=== PATIENT | female | born 1985 | race Two or more races ===

== ENCOUNTER 2019-03-13 02:56 | Outpatient (CLI) | payer OTHER ==
[2019-03-13] MEDS ORDERED: ONDANSETRON 4 MG/2 ML VIAL IVP PRN (03:20)
[2019-03-13] MEDS ORDERED: LACTATED RINGERS 1,000 ML IV ONE (03:25)
[2019-03-13] MEDS ORDERED: SODIUM CHLORIDE FLUSH 0.9% 10 ML SYRINGE ONE ×2 (03:26→07:38)
[2019-03-13] MEDS: LABETALOL 5 MG/1 ML 20 ML MDV IVP ONE ×2 (03:30→03:36)
[2019-03-13] MEDS ORDERED: ONDANSETRON 4 MG/2 ML VIAL ONE (03:32)
[2019-03-13 03:36] LABS: BASOPHILS % (AUTO) 0.2 %; EOSINOPHILS % (AUTO) 0.2 %; HGB - HEMOGLOBIN 13.3 g/dL (12.0-16.0); LYMPHOCYTES # (AUTO) 1.3 10^3/uL (1.5-3.5); LYMPHOCYTES % (AUTO) 9.5 %; MEAN CORPUSCULAR HEMOGLOBIN 33.9 pg (27.0-31.0); MEAN CORPUSCULAR HGB CONC 34.7 g/dL (32.0-36.0); MEAN CORPUSCULAR VOLUME 97.7 fL (81.0-99.0); MEAN PLATELET VOLUME 10.4 fL (7.9-10.8); MONOCYTES # (AUTO) 0.5 10^3/uL (0.0-1.0); NEUTROPHILS # (AUTO) 11.4 10^3/uL (1.5-6.6); NEUTROPHILS % (AUTO) 85.3 %; PLT - PLATELET COUNT 244 10^3/uL (130-450); RED BLOOD COUNT 3.92 10^6/uL (4.20-5.40); RED CELL DISTRIBUTION WIDTH 12.2 % (12.0-15.0); WHITE BLOOD COUNT 13.3 x10^3/uL (4.8-10.8)
[2019-03-13 03:38] LABS: BILIRUBIN,URINE NEGATIVE (NEGATIVE); GLUCOSE, URINE (UA) NEGATIVE (NEGATIVE); KETONES,URINE (UA) NEGATIVE (NEGATIVE); LEUKOCYTE ESTERASE, URINE NEGATIVE (NEGATIVE); NITRITE,URINE NEGATIVE (NEGATIVE); OCCULT BLOOD,URINE SMALL (NEGATIVE); PROTEIN,URINE 100 mg/dL (NEGATIVE); UROBILINOGEN,URINE 0.2 (NORMAL) E.U./dL (NORMAL)
[2019-03-13 03:39] LABS: CLARITY,URINE CLEAR (CLEAR)
[2019-03-13 03:48] LABS: CREATININE 0.7 mg/dL (0.4-1.0); URIC ACID 4.2 mg/dL (2.6-7.2)
[2019-03-13] MEDS ORDERED: LABETALOL 20 MG/4 ML SYRINGE IVP ONE ×4 (03:58→06:31)
[2019-03-13 04:02] LABS: PROTEIN/CREATININE RATIO,URINE 5.6 (<=0.2)
[2019-03-13] MEDS ORDERED: MAGNESIUM SULFATE IN WATER 20 GM/500 ML IV.SOLN IV SCH (04:10)
[2019-03-13] MEDS ORDERED: BETAMETHASONE 30 MG/5 ML VIAL IM ONE (04:11)
[2019-03-13] MEDS: MAGNESIUM SULFATE 2 GRAM 2 GM/50 ML BAG IV SCH ×2 (04:16→04:36)
[2019-03-13] MEDS ORDERED: MAGNESIUM SULFATE IN WATER 20 GM/500 ML IV.SOLN IV ONE (04:38)
[2019-03-13 05:22] LABS: MUDS CUTOFF CONCENTRATIONS CUTOFF CONC BELOW:
[2019-03-13 05:34] LABS: AMPHETAMINE SCREEN,URINE NEGATIVE (NEGATIVE); BENZODIAZEPINES SCREEN, URINE NEGATIVE (NEGATIVE); COCAINE SCREEN URINE NEGATIVE (NEGATIVE); METHADONE SCREEN, URINE NEGATIVE (NEGATIVE); METHAMPHETAMINES SCREEN, URINE NEGATIVE (NEGATIVE); OPIATE SCREEN, URINE NEGATIVE (NEGATIVE); OXYCODONE SCREEN, URINE NEGATIVE (NEGATIVE); PROPOXYPHENE SCREEN, URINE NEGATIVE (NEGATIVE); TRICYCLIC ANTIDEPRESSANT,URINE NEGATIVE (NEGATIVE)
[2019-03-13] MEDS ORDERED: LABETALOL 100 MG TABLET PO ONE (05:55)
--- NOTE | 2019-03-13 06:22 | PREOP HISTORY & PHYSICAL ---
DATE OF SERVICE: 03/13/2019 Physician: Mart Haddad MD IDENTIFICATION: A 33-year-old G1, P0, female whose EDC is 04/20, making her 34 weeks and 4 days. CHIEF COMPLAINT: Epigastric pain. HISTORY OF PRESENT ILLNESS: Patient states roughly 11:30 this evening, she was unable to fall asleep secondary to epigastric pain. She states that this has gotten progressively worse. She took Zantac for presumed heartburn. She states she had an episode of emesis at that time. She stated there was food that she threw up. She has not had any previous episodes in the past. She states at her last visit on 02/13/2019, she had an elevated blood pressure, 148/88, which resolved in the clinic. She denies any scotoma or headache. She has received her care at [facility] in [place], [place]. She denies any family history for preeclampsia. She has a sister who has had 3 children without preeclampsia; however, she relates that she was delivered at 32 weeks. PAST MEDICAL HISTORY: Patient denies any hypertensive, diabetic, cardiac or pulmonary disease. PAST SURGICAL HISTORY: Positive for a tonsillectomy and adenoidectomy, as well as wisdom teeth. ALLERGIES: NONE KNOWN. CURRENT MEDICATIONS 1. vitamins. 2. Zantac. 3. Tylenol. HABITS: Patient denies use of alcohol, tobacco, street or addictive drugs. SOCIAL HISTORY: Patient is single. She is active [employer], works as an electrician ship. FAMILY HISTORY: Positive for diabetes in both her parents type 2 as well as CVA in her father. REVIEW OF SYSTEMS: Negative with the exception of the need for glasses. PHYSICAL EXAMINATION VITAL SIGNS: Upon arrival, her blood pressures were 167/115, 176/113. She was ordered labetalol for this. Pulse is running 86. heart tones show a baseline of 130 with accelerations. HEENT: Pupils are equal, round. Extraocular muscles are intact. Thyroid is not palpably enlarged. HEART: Regular rate and rhythm without murmurs. LUNGS: Lung boyd are clear without rales or wheezes. BACK: No spinal or CVA tenderness. ABDOMEN: Shows tenderness in the epigastrium, particularly under the xiphoid. The liver itself does not palpate as tender. Fundal height was noted to be 33 cm. Her DTRs are 3+ and she shows evidence of a single beat of clonus. LABORATORIES: CBC shows a white count of 13.3, hemoglobin is 13.3, hematocrit is 38.3, platelets are 244. Her AST is elevated at 96. Her ALT is 84. Her protein creatinine ratio in her urine is 5.6 and she is high on her urine protein. She currently has a uric acid pending at this time. IMPRESSION: A 33-year-old G1, P0 female 34 and 4 weeks with severe preeclampsia. PLAN: We will arrange for transfer to a tertiary care center for management of her preeclampsia. We will start her on magnesium sulfate, as well as administer betamethasone for lung maturity. We will continue to try to manage her blood pressure with labetalol. TD: 03/13/2019 06:13 DAVID
[2019-03-13] MEDS ORDERED: MAGNESIUM SULFATE 2 GRAM 6 GM/150 ML BAG IV ONE (07:38)
[2019-03-13] MEDS ORDERED: LABETALOL 100 MG TABLET PO SCH (09:00)
[2019-03-13 23:16] VITALS: BP 142/91
== END 2019-03-13 06:40 | disposition short-term general hospital (02) ==
LOC: WFO 02:56 → FBP 03:00 → WFO 06:40
PROVIDERS: ATTEND Obstetrics & Gynecology
DX: O14.13 Severe pre-eclampsia, third trimester (principal); Z3A.34 34 weeks gestation of pregnancy
CPT/HCPCS: 36415; 81003; 82565; 82570; 84156; 84450; 84460; 84550; 85025; 86850; 86900; 86901; 99215; A9270; J7120; 80306

== ENCOUNTER 2019-03-13 06:55 | Outpatient (CLI) | payer OTHER | END 2019-03-13 06:56 | disposition short-term general hospital (02) | LOC: EMS 06:55 | PROVIDERS: ATTEND Surgery | DX: O14.13 Severe pre-eclampsia, third trimester (principal); Z3A.34 34 weeks gestation of pregnancy | CPT/HCPCS: A0425; A0427 ==

== ENCOUNTER 2020-12-20 17:29 | Emergency (ER) | payer OTHER ==
[2020-12-20 17:43] VITALS: BP 143/91
[2020-12-20] MEDS ORDERED: methocarbamoL 500 MG TABLET PO STA (17:54)
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
--- OUTSIDE RECORDS SUMMARY | 2020-12-20 18:27 | EXTERNAL MEDICAL SUMMARY RPT | Continuity of Care Document ---
:1985 Demographics Phone Unavailable Preferred Language Unknown Marital Status Unknown Buddhism Affiliation Unknown Race Unknown Ethnic Group Unknown Author Organization [facility] Address [address] [id number] Phone Allergies Encounters Medications Problems Results
[2020-12-20] MEDS ORDERED: KETOROLAC 60 MG/2 ML VIAL IM STA (18:34)
--- NOTE | 2020-12-20 18:34 | XRAY Report ---
PROCEDURE: Knee 4 View LT INDICATIONS: knee inj TECHNIQUE: 4 views of the left knee were acquired. COMPARISON: None. FINDINGS: Bones: No fractures or dislocations. Joint spaces appear preserved. No suspicious bony lesions. Soft tissues: No joint effusion. No suspicious soft tissue calcifications. IMPRESSION: 1. No fracture or dislocation. Reviewed by: Casey Solorzano MD on 12/20/2020 6:32 PM PDT Approved by: Casey Solorzano MD on 12/20/2020 6:32 PM PDT Station ID: [id number]
--- NOTE | 2020-12-20 18:35 | XRAY Report ---
PROCEDURE: Clavicle LT INDICATIONS: shoulder inj TECHNIQUE: 2 views of the clavicle were acquired. COMPARISON: None. FINDINGS: Bones: No fractures or dislocations. There is mild acromioclavicular joint degeneration. No suspicio us bony lesions. Soft tissues: No suspicious soft tissue calcifications. IMPRESSION: 1. No fracture or dislocation. Reviewed by: Casey Solorzano MD on 12/20/2020 6:33 PM PDT Approved by: Casey Solorzano MD on 12/20/2020 6:33 PM PDT Station ID: [id number]
--- NOTE | 2020-12-20 18:36 | CT Report ---
PROCEDURE: CERVICAL SPINE WO INDICATIONS: neck inj TECHNIQUE: Noncontrast 3 mm thick sections acquired from the skull base to the T4 level. Sagittal and coronal r eformats were then constructed. For radiation dose reduction, the following was used: automated exp osure control, adjustment of mA and/or kV according to patient size. COMPARISON: None. FINDINGS: Image quality: Excellent. Bones: No fractures or subluxation. There is mild degenerative disc disease in the lower cervical sp ine with mild disc space narrowing and osteophytosis. Visualized superior ribs are intact. Soft tissues: Prevertebral soft tissues are normal in thickness. No paravertebral hematomas. No ap ical pneumothoraces. IMPRESSION: 1. No fracture or subluxation. Reviewed by: Casey Solorzano MD on 12/20/2020 6:35 PM PDT Approved by: Casey Solorzano MD on 12/20/2020 6:35 PM PDT Station ID: [id number]
== END 2020-12-20 20:01 | disposition home or self-care (01) ==
LOC: ED 17:29
DX: S80.02XA Contusion of left knee, initial encounter (principal); S40.012A Contusion of left shoulder, initial encounter; S16.1XXA Strain of muscle, fascia and tendon at neck level, initial encounter; V28.0XXA Motorcycle driver injured in noncollision transport accident in nontraffic accident, initial encounter; Y93.89 Activity, other specified; Y92.89 Other specified places as the place of occurrence of the external cause
CPT/HCPCS: 72125; 73000; 73564; 96372; 99284; A9270

== ENCOUNTER 2021-10-17 08:00 | Outpatient (CLI) | payer OTHER | END 2021-10-17 23:59 | disposition home or self-care (01) | LOC: LAB.N 08:00 | PROVIDERS: ATTEND Registered Nurse | DX: R05.3 Chronic cough (principal); Z20.822 Contact with and (suspected) exposure to COVID-19 ==

== ENCOUNTER 2022-05-10 08:00 | Outpatient (CLI) | payer OTHER ==
[2022-05-10 14:23] LABS: INFLUENZA A- RESP PCR PANEL NOT DETECTED; INFLUENZA B - RESP PCR PANEL NOT DETECTED; RSV- RESP PCR PANEL NOT DETECTED; SARS-CoV-2 -RESP PCR PANEL NOT DETECTED
== END 2022-05-10 23:59 | disposition home or self-care (01) ==
LOC: LAB.N 08:00
PROVIDERS: ATTEND Registered Nurse
DX: J06.9 Acute upper respiratory infection, unspecified (principal); Z20.822 Contact with and (suspected) exposure to COVID-19
CPT/HCPCS: 87637